=== PATIENT | male | born 1970 | race African-American/Black ===

== ENCOUNTER → 2017-02-02 | Outpatient (CLI) | payer SELFPAY ==
--- NOTE | 2017-02-02 11:40 | DI ---
RIGHT SHOULDER, 02/02/2017 10:23 AM: Clinical History: Right shoulder pain. Previous Exam: None at this facility. 3 views are submitted. There is no acute soft tissue, osseous, or joint abnormality. The visualized p ortions of the right lung in the right apex are normal. Reading: Normal right shoulder exam.
== END ==
LOC: MOB RAD 10:20
DX: S49.91XA Unspecified injury of right shoulder and upper arm, initial encounter (principal); M25.511 Pain in right shoulder; W17.89XA Other fall from one level to another, initial encounter; Y93.H3 Activity, building and construction; Y92.69 Other specified industrial and construction area as the place of occurrence of the external cause; Y99.0 Civilian activity done for income or pay
CPT/HCPCS: 73030